=== PATIENT | female | born 1990 | race Caucasian/White ===

== ENCOUNTER 2018-04-23 08:37 | Emergency (ER) | payer OTHER ==
--- NOTE | 2018-04-23 09:03 | ER ---
Nurse's Notes [facility] Name: Kylah Sheriff Age: 28 yrs Sex: Female : 1990 Arrival Date: 04/23/2018 Time: 08:41 Bed 14 Private MD: None, None Diagnosis: Acute pharyngitis Presentation: 04/23 08:45 Presenting complaint: Patient states: She went to a walk in clinic and was told that rb1 she had ulcers in the back of her throat. She was prescribed Acyclovir 400 mg PO 1 tab 3 times a day. Transition of care: patient was not received from another setting of care. Onset of symptoms was April 21, 2018. Risk Assessment: Do you want to hurt yourself or someone else? Patient reports no desire to harm self or others. Initial Sepsis Screen: Does the patient meet any 2 criteria? No. Patient's initial sepsis screen is negative. Does the patient have a suspected source of infection? No. Patient's initial sepsis screen is negative. Care prior to arrival: Medication(s) given: Acyclovir 400 mg 1 tab 3 times a day. 08:45 Method Of Arrival: Ambulatory rb1 08:45 Acuity: AMOS 3 rb1 Triage Assessment: 08:45 General: Appears uncomfortable, Behavior is calm, cooperative, Reports chills for fever rb1 for. Pain: Complains of pain in left aspect of posterior pharynx and right aspect of posterior pharynx Pain currently is 8 out of 10 on a pain scale. Pain began Friday. EENT: Throat is reddened white patches noted on tonsils.. Reports pain when swallowing. Neuro: Level of Consciousness is awake, alert, obeys commands, Oriented to person, place, time, situation. Cardiovascular: Capillary refill < 3 seconds is brisk in bilateral fingers. Respiratory: Airway is patent Respiratory effort is even, unlabored, Respiratory pattern is regular, symmetrical. GI: No signs and/or symptoms were reported involving the gastrointestinal system. : No signs and/or symptoms were reported regarding the genitourinary system. Derm: Skin is pink, warm \T\ dry. Musculoskeletal: Range of motion: intact in all extremities. 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 - Social history:: Smoking status: Patient/guardian denies using tobacco. - Ebola Screening: : Patient negative for fever greater than or equal to 101.5 degrees Fahrenheit, and additional compatible Ebola Virus Disease symptoms Patient denies travel to an Ebola-affected area in the 21 days before illness onset. Screenin:45 Abuse screen: Denies threats or abuse. Nutritional screening: No deficits noted. rb1 Tuberculosis screening: No symptoms or risk factors identified. Fall Risk None identified. Assessment: 08:45 General: See triage assessment. Respiratory: Airway is patent Respiratory effort is rb1 even, unlabored, Respiratory pattern is regular, symmetrical, Breath sounds are clear bilaterally. 09:15 Reassessment: Patient appears in no apparent distress at this time. No changes from rb1 previously documented assessment. Vital Signs: 08:45 BP 108 / 70; Pulse 96; Resp 19; Temp 98.7(O); Pulse Ox 100% on R/A; Weight 66.68 kg rb1 (R); Height 5 ft. 4 in. (162.56 cm) (R); Pain 8/10; 08:45 Body Mass Index 25.23 (66.68 kg, 162.56 cm) rb1 ED Course: 08:41 Patient arrived in ED. sb2 08:42 None, None is Private Physician. sb2 08:45 Leonidas John MD is Attending Physician. gs 08:45 Chiara Mcqueen FNP-C is PHCP. snw 08:45 Arm band placed on right wrist. rb1 08:45 Patient has correct armband on for positive identification. Bed in low position. Call rb1 light in reach. Side rails up X 1. Pulse ox on. NIBP on. 08:45 Strep swab sent to lab. rb1 08:46 Chiara Mcqueen FNP-C is PHCP. snw 08:48 Radhika Montano, RN is Primary Nurse. rb1 08:52 Triage completed. rb1 09:15 No provider procedures requiring assistance completed. Patient did not have IV access rb1 during this emergency room visit. Administered Medications: 09:05 Drug: Decadron 8 mg Route: PO; rb1 09:16 Follow up: Response: No adverse reaction rb1 09:05 Drug: Zithromax 500 mg Route: PO; rb1 09:16 Follow up: Response: No adverse reaction rb1 Outcome: 09:02 Discharge ordered by . [email or web address] 09:15 Discharged to home ambulatory. rb1 09:15 Condition: stable 09:15 Discharge instructions given to patient, Instructed on discharge instructions, follow up and referral plans. medication usage, Demonstrated understanding of instructions, follow-up care, medications, Prescriptions given X 1. 09:17 Patient left the ED. rb1 Signatures: Chiara Mcqueen, ON SITE SOIL EVALUATOR-C ON SITE SOIL EVALUATOR-Csnw Radhika Montano RN RN rb1 Leonidas John MD MD Nighat Kent2
--- NOTE | 2018-04-23 09:03 | EDPHYS ---
Physician Documentation [facility] Name: Kylah Sheriff Age: 28 yrs Sex: Female : 1990 Arrival Date: 04/23/2018 Time: 08:41 Bed 14 Private MD: None, None ED Physician Leonidas John HPI: 04/23 09:24 This 28 yrs old Female presents to ER via Ambulatory with complaints of Sore snw Throat. 09:24 The patient presents with sore throat. The patient describes throat pain as scratchy. snw Onset: The symptoms/episode began/occurred 1 week(s) ago, and became worse and became persistent. Severity of symptoms: At their worst the symptoms were moderate. Associated signs and symptoms: Pertinent positives: flu-like symptoms. The patient has not experienced similar symptoms in the past. The patient has been recently seen by a physician: 1 week(s) ago, with similar presenting complaints, given acyclovir. pt states it has become increasingly painful to swallow. 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 - Social history:: Smoking status: Patient/guardian denies using tobacco. - Ebola Screening: : Patient negative for fever greater than or equal to 101.5 degrees Fahrenheit, and additional compatible Ebola Virus Disease symptoms Patient denies travel to an Ebola-affected area in the 21 days before illness onset. ROS: 09:23 Constitutional: Negative for fever, chills, and weight loss, Eyes: Negative for injury, snw pain, redness, and discharge, Cardiovascular: Negative for chest pain, palpitations, and edema, Respiratory: Negative for shortness of breath, cough, wheezing, and pleuritic chest pain, Abdomen/GI: Negative for abdominal pain, nausea, vomiting, diarrhea, and constipation, Back: Negative for injury and pain, : Negative for injury, bleeding, discharge, and swelling, MS/Extremity: Negative for injury and deformity, Skin: Negative for injury, rash, and discoloration, Neuro: Negative for headache, weakness, numbness, tingling, and seizure. 09:23 ENT: Positive for sore throat. 09:23 Neck: Positive for swollen nodes. Exam: 08:59 Constitutional: This is a well developed, well nourished patient who is awake, alert, snw and in no acute distress. Head/Face: Normocephalic, atraumatic. Eyes: Pupils equal round and reactive to light, extra-ocular motions intact. Lids and lashes normal. Conjunctiva and sclera are non-icteric and not injected. Cornea within normal limits. Periorbital areas with no swelling, redness, or edema. Neck: Trachea midline, no thyromegaly or masses palpated, and no cervical lymphadenopathy. Supple, full range of motion without nuchal rigidity, or vertebral point tenderness. No Meningismus. Chest/axilla: Normal chest wall appearance and motion. Nontender with no deformity. No lesions are appreciated. Cardiovascular: Regular rate and rhythm with a normal S1 and S2. No gallops, murmurs, or rubs. Normal PMI, no JVD. No pulse deficits. Respiratory: Lungs have equal breath sounds bilaterally, clear to auscultation and percussion. No rales, rhonchi or wheezes noted. No increased work of breathing, no retractions or nasal flaring. Abdomen/GI: Soft, non-tender, with normal bowel sounds. No distension or tympany. No guarding or rebound. No evidence of tenderness throughout. Back: No spinal tenderness. No costovertebral tenderness. Full range of motion. Skin: Warm, dry with normal turgor. Normal color with no rashes, no lesions, and no evidence of cellulitis. MS/ Extremity: Pulses equal, no cyanosis. Neurovascular intact. Full, normal range of motion. Neuro: Awake and alert, GCS 15, oriented to person, place, time, and situation. Cranial nerves II-XII grossly intact. Motor strength 5/5 in all extremities. Sensory grossly intact. Cerebellar exam normal. Normal gait. 08:59 ENT: External ear(s): are unremarkable, Ear canal(s): no acute changes, TM's: are normal, Nose: is normal, Mouth: is normal, Posterior pharynx: Tonsils: with erythema, with exudate, swelling, that is mild, erythema, that is moderate, Voice: is normal, + tender anterior lymph nodes, swollen. Vital Signs: 08:45 BP 108 / 70; Pulse 96; Resp 19; Temp 98.7(O); Pulse Ox 100% on R/A; Weight 66.68 kg rb1 (R); Height 5 ft. 4 in. (162.56 cm) (R); Pain 8/10; 08:45 Body Mass Index 25.23 (66.68 kg, 162.56 cm) rb1 MDM: 08:46 Patient medically screened. snw 04/23 08:46 Order name: Strep; Complete Time: 09:26 snw 04/23 09:15 Order name: Throat Culture EDMS Administered Medications: 09:05 Drug: Decadron 8 mg Route: PO; rb1 09:16 Follow up: Response: No adverse reaction rb1 09:05 Drug: Zithromax 500 mg Route: PO; rb1 09:16 Follow up: Response: No adverse reaction rb1 Disposition: 12:06 Co-signature as Attending Physician, Leonidas John MD. Disposition: 04/23/18 09:02 Discharged to Home. Impression: Acute pharyngitis. - Condition is Stable. - Discharge Instructions: Pharyngitis, Rehydration, Adult. - Prescriptions for Zithromax 500 mg Oral Tablet - take 1 tablet by ORAL route once daily for 5 days; 5 tablet. - Medication Reconciliation Form, Thank You Letter, Antibiotic Education, Prescription Opioid Use form. - Follow up: Emergency Department; When: As needed; Reason: Worsening of condition. Follow up: Private Physician; When: 2 - 3 days; Reason: Recheck today's complaints, Continuance of care, Re-evaluation by your physician. Signatures: Dispatcher [employer] Chiara Mcqueen, TERRI-C METER READER INSPECTOR-Csnw Radhika Montano, RN RN rb1 Leonidas John MD MD Corrections: (The following items were deleted from the chart) 09:17 09:02 04/23/2018 09:02 Discharged to Home. Impression: Acute pharyngitis. Condition is rb1 Stable. Forms are Medication Reconciliation Form, Thank You Letter, Antibiotic Education, Prescription Opioid Use. Follow up: Emergency Department; When: As needed; Reason: Worsening of condition. Follow up: Private Physician; When: 2 - 3 days; Reason: Recheck today's complaints, Continuance of care, Re-evaluation by your physician. snw 09:24 08:59 ENT: External ear(s): are unremarkable, Ear canal(s): no acute changes, TM's: are snw normal, Nose: is normal, Mouth: is normal, Posterior pharynx: Tonsils: with erythema, with exudate, swelling, that is mild, erythema, that is moderate, Voice: is normal, snw
[2018-04-23] MEDS ORDERED: AZITHROMYCIN 250 MG TAB ONE (09:06)
[2018-04-23] MEDS ORDERED: DEXAMETHASONE 4 MG TAB ONE (09:06)
== END 2018-04-23 09:17 | disposition home or self-care (01) ==
LOC: ER 08:37
DX: J02.9 Acute pharyngitis, unspecified (principal); Z88.6 Allergy status to analgesic agent
CPT/HCPCS: 87070; 87081; 99284